=== PATIENT | female | born 1955 | race Caucasian/White ===

== ENCOUNTER → 2018-01-10 | Outpatient (CLI) | payer OTHER ==
[~2018-01-10] VITALS: Ht 172.7 cm; Wt 97.5 kg
[~2018-01-10] MED LIST: ACCOLATE20 MG PO; ALDACTONE25 MG PO; ASPIR 8181 M1 PO; CARDIZEM30 MG PO; FISH OIL 1,2001 EAC1 PO; FLOVENT 22120 INHALA IH; GLUCOPHAGE1000 MG PO; LEVAQUIN500 MG PO; LEXAPRO20 MG PO; LIPITOR20 MG PO; LOTENSIN20 MG PO; METFORMIN HCL500 MG PO; MOBIC15 MG PO; NORCO 5/3251 TABLET PO; VENTOLIN HFA18 GM IH; VICODIN 5-3001 EACH PO; XANAX1 MG PO
== END | disposition home or self-care (01) ==
LOC: AMB 09:11
PROVIDERS: Internal Medicine Gastroenterology
PROC: 0DJD8ZZ Inspection of Lower Intestinal Tract, Via Natural or Artificial Opening Endoscopic (ICD-10-PCS; principal; 2018-01-10)
DX: Z12.11 Encounter for screening for malignant neoplasm of colon (principal); K57.30 Diverticulosis of large intestine without perforation or abscess without bleeding; Z85.038 Personal history of other malignant neoplasm of large intestine; Z90.49 Acquired absence of other specified parts of digestive tract
CPT/HCPCS: 82948; 93005; J0330; J2250